=== PATIENT | female | born 1990 | race Caucasian/White ===

== ENCOUNTER 2016-12-28 06:08 | Emergency (ER) | payer BC, OTHER ==
[2016-12-28 06:38] VITALS: BP 107/68
--- NOTE | 2016-12-28 07:47 | ER Document Report ---
ED Fall - General Chief Complaint: Fall Stated Complaint: FELL OUT OF GOLF CART Time Seen by Provider: 12/28/16 07:44 Mode of Arrival: Ambulatory Information source: Patient Notes: Patient is a 26-year-old female who presents to the ER today after drinking too much last night and falling off of her golf cart patient fell onto her left side and onto her left hand, complaining of left finger pain in the second third and fourth fingers. She also scraped her legs, knees, having left lower leg pain. She denies hitting her head or losing consciousness, witnessed was there he states that she did not hit her head. She denies any nausea, vomiting. TRAVEL OUTSIDE OF THE [place] IN LAST 30 DAYS: No - Related data Allergies/Adverse Reactions: Penicillins Adverse Reaction (Verified 01/10/13 21:31) Past Medical History - General Information source: Patient - Social History Smoking Status: Current Every Day Smoker Family History: Reviewed & Not Pertinent Patient has suicidal ideation: No Patient has homicidal ideation: No Renal/ Medical History: Denies: Hx Peritoneal Dialysis Malignancy Medical History: Reports: Hx Cervical Cancer Past Surgical History: Reports: Hx Cardiac Surgery - Ablation, Hx Gynecologic Surgery - cervical ablation - Immunizations Immunizations up to date: Yes Hx Diphtheria, Pertussis, Tetanus Vaccination: Yes Review of Systems - Review of Systems Constitutional: No symptoms reported EENT: No symptoms reported Cardiovascular: No symptoms reported Respiratory: No symptoms reported Gastrointestinal: No symptoms reported Genitourinary: No symptoms reported Female Genitourinary: No symptoms reported Musculoskeletal: See HPI Skin: No symptoms reported Hematologic/Lymphatic: No symptoms reported Neurological/Psychological: No symptoms reported Physical Exam - Vital signs Vitals: Temp Pulse Resp BP Pulse Ox 98.2 F 101 H 20 107/68 97 12/28/16 06:33 12/28/16 06:33 12/28/16 06:33 12/28/16 06:33 12/28/16 06:33 - Notes Notes: PHYSICAL EXAMINATION: GENERAL: Well-appearing and in no acute distress. HEAD: Atraumatic, normocephalic. EYES: Pupils equal round and reactive to light, extraocular movements intact, sclera anicteric, conjunctiva are normal. NECK: Normal range of motion, supple without lymphadenopathy LUNGS: CTAB and equal. No wheezes rales or rhonchi. HEART: Regular rate and rhythm without murmurs EXTREMITIES: left 2nd, 3rd, and 4th digits with tenderness to touch distally and over DIP joints to all three fingers, good assembly machine tender strength but with pain to these fingers, good capillary refill, Normal range of motion, no pitting edema. No cyanosis. NEUROLOGICAL: Cranial nerves grossly intact. Normal sensory/motor exams. PSYCH: Normal mood, normal affect. SKIN: Warm, Dry, normal turgor, skin abrasion to left anterior knee, large skin abrasion to left heel, not bleeding, ecchymoses to left 2nd, 3rd, and 4th distal fingers Course - Re-evaluation Re-evalutation: 12/30/16 07:30 pt had nondisplaced fractures to distal phalanx on 2nd 3rd and 4th digits of left hand, placed in splint with tongue depressors and oscar wrap, given info for ortho, given tdap as she didn't know her last tetanus. - Vital Signs Vital signs: Temp Pulse Resp BP Pulse Ox 98.2 F 101 H 20 107/68 97 12/28/16 06:33 12/28/16 06:33 12/28/16 06:33 12/28/16 06:33 12/28/16 06:33 Procedures - Immobilization Left Hand Time completed: 07:31 Pre-Proc Neuro Vasc Exam: Normal Immobilizer type: Oscar wrap, Other - tongue depressors for 3 consecutive fingers Performed by: RN Post-Proc Neuro Vasc Exam: Normal Alignment checked and good: Yes Discharge - Discharge Clinical Impression: fracture of multiple fingers of hand, rt Condition: Stable Disposition: HOME, SELF-CARE Additional Instructions: Return immediately for any new or worsening symptoms. Follow up with ortho, call tomorrow to make followup appointment. Prescriptions: Hydrocodone/Acetaminophen [[place] 5-325 mg Tablet] 1 tab PO Q4 PRN #15 tablet PRN Reason: Forms: Return to Work Referrals: SHELL JAMES, [ACTIVE STAFF] - Follow up as needed
[2016-12-28] MEDS ORDERED: DIPH/PERTUSS(ACELL)/TETANUS VAC/PF 0.5 ML SYR (>=10YO) IM ONE (08:50)
[2016-12-28] MEDS ORDERED: HYDROCODONE/ACETAMINOPHEN 5-325 MG TABLET PO ONE (08:50)
[2016-12-28] MEDS ORDERED: MUPIROCIN 2% OINTMENT 22 GM TP ONE (08:52)
--- NOTE | 2016-12-28 08:58 | RADIOLOGY REPORT (SQ) ---
EXAM DESCRIPTION: FOOT LEFT 2 VIEWS COMPLETED DATE/TIME: 12/28/2016 8:48 am REASON FOR STUDY: fall, pain COMPARISON: None. NUMBER OF VIEWS: Three views. TECHNIQUE: AP, lateral and oblique radiographic images acquired of the left foot. LIMITATIONS: None. FINDINGS: MINERALIZATION: Normal. BONES: No acute fracture or dislocation. No worrisome bone lesions. JOINTS: No effusions. SOFT TISSUES: No soft tissue swelling. No foreign body. OTHER: No other significant finding. IMPRESSION: NEGATIVE STUDY OF THE LEFT FOOT. NO RADIOGRAPHIC EVIDENCE OF ACUTE INJURY. TECHNICAL DOCUMENTATION: JOB ID: [id number] [employer]- All Rights Reserved
--- NOTE | 2016-12-28 08:59 | RADIOLOGY REPORT (SQ) ---
EXAM DESCRIPTION: HAND RIGHT 3 VIEWS COMPLETED DATE/TIME: 12/28/2016 8:48 am REASON FOR STUDY: fall, pain COMPARISON: None. EXAM PARAMETERS: NUMBER OF VIEWS: Three views. TECHNIQUE: AP, lateral and oblique radiographic images acquired of the right hand. LIMITATIONS: None. FINDINGS: MINERALIZATION: Normal. BONES: There is a nondisplaced intra-articular fracture through the base of the 2nd distal phalanx. There is a minimally displaced volar plate fracture involving the base of the 3rd middle phalanx. Th ere is a mildly displaced fracture involving the neck of the 4th middle phalanx. Bones otherwise int act. JOINTS: No effusions. SOFT TISSUES: Associated soft tissue swelling. OTHER: No other significant finding. IMPRESSION: FRACTURES INVOLVING THE 2ND DISTAL PHALANX, 3RD MIDDLE PHALANX, AND 4TH MIDDLE PHALANX A S DETAILED ABOVE. TECHNICAL DOCUMENTATION: JOB ID: [id number] [employer]- All Rights Reserved
--- NOTE | 2016-12-28 09:00 | RADIOLOGY REPORT (SQ) ---
EXAM DESCRIPTION: TIBIA FIBULA LEFT COMPLETED DATE/TIME: 12/28/2016 8:48 am REASON FOR STUDY: fall, pain COMPARISON: None. NUMBER OF VIEWS: Two views. TECHNIQUE: Two radiographic images acquired of the left tibia and fibula to include the knee and ank le in at least one projection. LIMITATIONS: None. FINDINGS: MINERALIZATION: Normal. BONES: No acute fracture or dislocation. No worrisome bone lesions. There is a small bony excrescen ce involving the lateral aspect of the distal tibial metaphysis likely sequela to chronic syndesmosis injury. SOFT TISSUES: No obvious swelling or foreign body. OTHER: No other significant finding. IMPRESSION: NO RADIOGRAPHIC EVIDENCE OF ACUTE INJURY. TECHNICAL DOCUMENTATION: JOB ID: [id number] [employer]- All Rights Reserved
== END 2016-12-28 10:01 | disposition home or self-care (01) ==
LOC: ER 06:08
PROC: 2W3CX1Z Immobilization of Right Lower Arm using Splint (ICD-10-PCS; principal; 2016-12-28)
DX: S62.622A Displaced fracture of middle phalanx of right middle finger, initial encounter for closed fracture (principal); S62.624A Displaced fracture of middle phalanx of right ring finger, initial encounter for closed fracture; S62.660A Nondisplaced fracture of distal phalanx of right index finger, initial encounter for closed fracture; S80.212A Abrasion, left knee, initial encounter; S90.812A Abrasion, left foot, initial encounter; W17.89XA Other fall from one level to another, initial encounter; M79.645 Pain in left finger(s); M79.662 Pain in left lower leg; F17.200 Nicotine dependence, unspecified, uncomplicated; Z23 Encounter for immunization; Z85.41 Personal history of malignant neoplasm of cervix uteri
CPT/HCPCS: 99283; 90471; 73620; 73130; 73590; 90715; 29125; J3490

== ENCOUNTER 2018-03-25 15:15 | Outpatient (CLI) | payer OTHER ==
--- NOTE | 2018-03-25 15:58 | Non Stress Test Report ---
Non Stress Test Datetime Report Generated by CPN: 03/25/2018 15:58 DEMOGRAPHIC EGA NST: 35.0 INDICATION Indication for Study: Diabetes Mellitus Indication for Study (NST) Other: GDM sent from office VITAL SIGNS Temperature - NST: 98.4 Pulse - NST: 88 RESP - NST: 14 NBPSYS NST: 143 NBPDIA NST: 86 MONITORING Monitor Explained: Monitor Explained; Test Explained; Patient Verbalized Understanding Time on Monitor: 03/25/2018 15:29 Time off Monitor: 03/25/2018 15:51 NST Duration: 22 NST INTERVENTIONS NST Interventions: Reposition Patient Physician Notified NST: J. Groves CNM BABY A: [id number] BABY A Movement : Present Contraction Frequency : 0 FHR Baseline : 140 Accelerations : 15X15 Decelerations : None Variability : Moderate 6-25bpm NST Review: Meets Criteria for Reactive NST NST Review and Verified By : AURY Montanez Results: Reactive NST REPORT Report Trigger: Send Report
== END 2018-03-25 15:51 | disposition home or self-care (01) ==
LOC: LC 15:15
PROVIDERS: ATTEND Obstetrics & Gynecology Gynecology
DX: O24.419 Gestational diabetes mellitus in pregnancy, unspecified control (principal); Z3A.35 35 weeks gestation of pregnancy
CPT/HCPCS: 59025